=== PATIENT | female | born 1995 | race African-American/Black ===

== ENCOUNTER 2022-05-19 12:20 | Emergency (ER) | payer MEDICAID ==
[~2022-05-19] VITALS: Ht 165.1 cm; Wt 69.9 kg
[2022-05-19 12:20] VITALS: BP 120/69
[2022-05-19] MEDS ORDERED: ACET-2605 PO (12:44)
== END 2022-05-19 12:51 | disposition home or self-care (01) ==
LOC: ER 12:25
DX: S20.219A Contusion of unspecified front wall of thorax, initial encounter (principal); F41.9 Anxiety disorder, unspecified; Z79.899 Other long term (current) drug therapy; V89.2XXA Person injured in unspecified motor-vehicle accident, traffic, initial encounter; Y93.89 Activity, other specified; Y92.89 Other specified places as the place of occurrence of the external cause; Y99.8 Other external cause status